=== PATIENT | female | born 1970 | race Caucasian/White ===

== ENCOUNTER 2021-03-14 12:01 | Emergency (ER) | payer OTHER ==
[~2021-03-14] VITALS: Ht 162.6 cm; Wt 58.6 kg
--- NOTE | 2021-03-14 13:42 | NUR ---
HISTORY PROFESSOR: PT TO ROOM FROM [facility]
[2021-03-14] MEDS ORDERED: LORazepam 1MG TABLET PO ONE (14:00)
[2021-03-14] MEDS ORDERED: LORazepam 1MG TABLET ONE (14:03)
--- NOTE | 2021-03-14 14:10 | NUR ---
speech instructor completed, po medication provided for anxiety r/t ETOH withdrawal symptoms, and warm blanket provided with call light in reach.
--- NOTE | 2021-03-14 14:20 | NUR ---
Pt denies taking any meds at home.
[2021-03-14 14:40] LABS: BASOPHILS % (AUTO) 1 % (0-1); EOSINOPHILS % (AUTO) 2 % (1-7); LYMPHOCYTES % (AUTO) 36 % (22-44); MEAN CORPUSCULAR HGB CONC 34.2 g/dL (32.4-35.8); MEAN PLATELET VOLUME 9.8 fL (7.4-10.4); MONOCYTES % (AUTO) 8 % (2-9); NEUTROPHILS % (AUTO) 53 % (42-75); PLATELET COUNT 140 x10^3/uL (130-400); RED BLOOD COUNT 4.72 x10^6/uL (3.82-5.3); RED CELL DISTRIBUTION WIDTH 14.4 % (9.6-15.2)
[2021-03-14 14:43] LABS: ALBUMIN 4.1 g/dL (3.4-5.0); ANION GAP 8 mmol/L (5-15); CALCIUM 8.8 mg/dL (8.5-10.1); CHLORIDE 110 mmol/L (98-107); CREATININE 0.67 mg/dL (0.55-1.02); MD NO
[2021-03-14 14:46] LABS: ALANINE AMINOTRANSFERASE 113 U/L (12-78); ALKALINE PHOSPHATASE 153 U/L (45-117); BILIRUBIN,TOTAL 0.8 mg/dL (0.2-1.0); TOTAL PROTEIN 7.7 g/dL (6.4-8.2)
[2021-03-14 15:00] VITALS: BP 121/67
--- NOTE | 2021-03-14 15:00 | NUR ---
VS reassessed and pt states some relief of anxiety feelings after federal mediator on reassessment.
== END 2021-03-14 15:37 | disposition home or self-care (01) ==
LOC: ED 13:58
DX: F10.220 Alcohol dependence with intoxication, uncomplicated (principal); F17.210 Nicotine dependence, cigarettes, uncomplicated; R45.1 Restlessness and agitation; Y90.0 Blood alcohol level of less than 20 mg/100 ml
CPT/HCPCS: 36415; 80053; 80320; 83690; 85025; 99283; G0480